=== PATIENT | female | born 1990 | race Caucasian/White ===

== ENCOUNTER 2020-05-09 15:37 | Emergency (ER) | payer MEDICAID ==
[~2020-05-09] VITALS: Ht 162.6 cm; Wt 81.8 kg
[~2020-05-09 15:37] MED LIST: NO HOME MEDS
== END 2020-05-09 16:44 | disposition home or self-care (01) ==
LOC: ER 15:37
DX: R05 Cough (principal); R51.9 Headache, unspecified; R43.8 Other disturbances of smell and taste; R53.83 Other fatigue; Z20.828 Contact with and (suspected) exposure to other viral communicable diseases
CPT/HCPCS: 36415; 87635; 99283

== ENCOUNTER 2021-05-02 01:39 | Emergency (ER) | payer MEDICAID ==
[~2021-05-02] VITALS: Ht 160 cm; Wt 68.2 kg
[2021-05-02 02:14] LABS: BASOPHILS # (AUTO) 0.1 X10'3 (0-0.2); BASOPHILS % (AUTO) 0.5 % (0-1); EOSINOPHILS # (AUTO) 0.8 X10'3 (0-0.9); EOSINOPHILS % (AUTO) 7.8 % (0-6); HEMATOCRIT 34.7 % (35.0-45.0); HEMOGLOBIN 11.6 g/dl (12.0-16.0); LYMPHOCYTES # (AUTO) 2.6 X10'3 (1.1-4.8); LYMPHOCYTES % (AUTO) 25.6 % (21-51); MEAN CORPUSCULAR HEMOGLOBIN 27.9 PG (27.0-31.0); MEAN CORPUSCULAR HGB CONC 33.5 g/dL (33.0-36.5); MEAN CORPUSCULAR VOLUME 83.3 FL (78-98); MEAN PLATELET VOLUME 6.9 FL (7.4-10.4); MONOCYTES # (AUTO) 0.8 X10'3 (0-0.9); MONOCYTES % (AUTO) 7.6 % (2-12); NEUTROPHILS % (AUTO) 58.5 % (42-75); PLATELET COUNT 338 X10'3 (140-440); RED BLOOD COUNT 4.16 X10'6 (4.20-5.60); WHITE BLOOD COUNT 10.3 X10'3 (4.5-11.0)
[2021-05-02 02:17] LABS: ALBUMIN 3.3 G/DL (3.4-5.0); ANION GAP 9 (8-16); BLOOD UREA NITROGEN 11 MG/DL (7-18); BUN/CREATININE RATIO 17.2 (6.6-38.0); CHLORIDE 104 MMOL/L (99-107); CREATININE 0.64 MG/DL (0.40-0.90); GLUCOSE 89 MG/DL (70-104); POTASSIUM 3.9 MMOL/L (3.5-5.1); SODIUM 140 MMOL/L (135-145); eGFR > 90 ML/MIN
[2021-05-02] MEDS ORDERED: iohexol 300mg/ml 100ml inj. ONE (02:17)
[2021-05-02 03:57] VITALS: BP 121/81
[2021-05-02] MEDS ORDERED: sulfamethoxazole/trimethoprim DS (800/160mg) tablet PO ONE (04:25)
[2021-05-02] MEDS ORDERED: SULF1TAB49 PO (04:26)
== END 2021-05-02 04:35 | disposition home or self-care (01) ==
LOC: ER 01:40
DX: L03.213 Periorbital cellulitis (principal); Z79.2 Long term (current) use of antibiotics
CPT/HCPCS: 36415; 70487; 80048; 85025; 99285; Q9967

== ENCOUNTER 2021-08-11 13:15 | Emergency (ER) | payer MEDICAID ==
[~2021-08-11] VITALS: Ht 160 cm; Wt 71.3 kg
[2021-08-11 13:26] VITALS: BP 118/69
[2021-08-11] MEDS ORDERED: SULF1TAB49 PO (14:58)
[2021-08-11] MEDS ORDERED: sulfamethoxazole/trimethoprim DS (800/160mg) tablet PO ONE (15:00)
--- NOTE | 2021-08-11 15:39 | NUR ---
po med refused. pt left without dc papers.
== END 2021-08-11 15:41 | disposition home or self-care (01) ==
LOC: ER 13:15
DX: L02.01 Cutaneous abscess of face (principal); Z79.899 Other long term (current) drug therapy
CPT/HCPCS: 99283

== ENCOUNTER 2021-09-03 07:08 | Emergency (ER) | payer MEDICAID ==
[~2021-09-03] VITALS: Ht 160 cm; Wt 70.0 kg
[2021-09-03] MEDS ORDERED: TETanus/Pertussis (Acell)/Diphther VAC/PF (Tdap-Adult) 0.5ml syringe IMVAC ONE (07:40)
[2021-09-03] MEDS ORDERED: LIDOcaine 1% 30ml preserv. free vial IJ ONE (07:40)
[2021-09-03] MEDS ORDERED: bacitracin 15gm ointment TP ONE (09:20)
[2021-09-03 09:39] VITALS: BP 107/67
== END 2021-09-03 09:40 | disposition home or self-care (01) ==
LOC: ER 07:09
DX: S51.812A Laceration without foreign body of left forearm, initial encounter (principal); W45.8XXA Other foreign body or object entering through skin, initial encounter; Y93.89 Activity, other specified; Y92.89 Other specified places as the place of occurrence of the external cause; Y99.8 Other external cause status; F41.9 Anxiety disorder, unspecified; F31.9 Bipolar disorder, unspecified; F15.10 Other stimulant abuse, uncomplicated
CPT/HCPCS: 12002; 90471; 90715; 99283; J3490

== ENCOUNTER 2021-09-16 03:29 | Emergency (ER) | payer MEDICAID ==
[~2021-09-16] VITALS: Ht 160 cm; Wt 70.0 kg
[2021-09-16 05:08] VITALS: BP 125/71
== END 2021-09-16 05:14 | disposition home or self-care (01) ==
LOC: ER 03:30
DX: S51.812D Laceration without foreign body of left forearm, subsequent encounter (principal); F41.9 Anxiety disorder, unspecified; F32.A Depression, unspecified; F15.10 Other stimulant abuse, uncomplicated; W45.8XXD Other foreign body or object entering through skin, subsequent encounter
CPT/HCPCS: 99281